=== PATIENT | female | born 1940 | race American Indian/Alaskan Native ===

== ENCOUNTER 2017-01-05 19:25 | Emergency (ER) | payer MEDICARE ==
--- NOTE | 2017-01-05 20:41 | Emergency Department Report ---
HPI - General Chief Complaint: Syncope Time Seen by Provider: 01/05/17 20:11 - HPI HPI: This is a 76-year-old Afro[place]er female who presents to the emergency department by EMS from [facility] with complaint of dizziness/lightheadedness and a possible syncopal episode. The patient came to the [facility] saying that she was feeling dizzy and they told her to sit down. At that point she may have passed out and says the last thing she actually remembers is coming to the hospital with EMS. She denies any chest pain, shortness of breath, headache , vision change, palpitations. She has a history of insulin dependent diabetes , hypertension. Her primary care doctor is at [facility] and his Dr. Abiodun Zayas. She denies any history of ME, CVA, PE/DVT. She did not take anything and was not given anything for symptoms prior to presentation. No recent travel. ED Past Medical Hx - Past Medical History Previous Medical History?: Yes Hx Hypertension: Yes Hx Diabetes: Yes Hx Psychiatric Treatment: Yes (depression) - Surgical History Past Surgical History?: No - Social History Smoking Status: Never Smoker Substance Use Type: None - Medications Home Medications: Home Medications Medication Instructions Recorded Confirmed Last Taken Type Acetaminophen [Mapap] 325 mg PO Q6H PRN 03/03/16 03/03/16 Unknown History Amlodipine Besylate [Norvasc] 10 mg PO DAILY 03/03/16 03/03/16 Unknown History Aspirin [Aspirin BABY CHEW TAB] 81 mg PO QDAY 03/03/16 03/03/16 Unknown History Atorvastatin [Lipitor Tab] 40 mg PO QHS 03/03/16 03/03/16 Unknown History Buspirone HCl [busPIRone] 5 mg PO TID 03/03/16 03/03/16 Unknown History Donepezil HCl 10 mg PO QDAY 03/03/16 03/03/16 Unknown History Furosemide [Lasix] 20 mg PO QDAY 03/03/16 03/03/16 Unknown History Ibuprofen [Motrin] 800 mg PO Q8HR PRN 03/03/16 03/03/16 Unknown History Insulin NPH/Regular [Novolin 70/30] See Protocol SQ ACHS 03/03/16 03/03/16 Unknown History Losartan [Cozaar] 50 mg PO QDAY 03/03/16 03/03/16 Unknown History Memantine HCl [Namenda] 5 mg PO BID 03/03/16 03/03/16 Unknown History oxyCODONE /ACETAMINOPHEN [Percocet 1 tab PO Q4HR 03/03/16 03/03/16 Unknown History ] ED Review of Systems ROS: Stated complaint: DIZZINESS Other details as noted in HPI Comment: All other systems reviewed and negative Constitutional: denies: chills, fever Eyes: denies: eye pain, eye discharge, vision change ENT: denies: ear pain, throat pain Respiratory: denies: cough, shortness of breath, wheezing Cardiovascular: syncope. denies: chest pain, palpitations Gastrointestinal: denies: abdominal pain, nausea, diarrhea Genitourinary: denies: urgency, dysuria, discharge Musculoskeletal: denies: back pain, joint swelling, arthralgia Skin: denies: rash, lesions Neurological: other (dizziness/lightheadedness). denies: headache Physical Exam - Physical Exam Vital Signs: Vital Signs 01/05/17 01/05/17 19:56 20:14 Temperature 98.8 F Pulse Rate 53 L Respiratory 18 18 Rate Blood Pressure 115/53 O2 Sat by Pulse 99 99 Oximetry Physical Exam: GENERAL: The patient is well-developed well-nourished. HEENT: Normocephalic. Atraumatic. Extraocular motions are intact. Patient has moist mucous membranes. Pupils equal reactive to light bilaterally. No nystagmus. NECK: Supple. Trachea is midline. CHEST/LUNGS: Clear to auscultation. There is no respiratory distress noted. HEART/CARDIOVASCULAR: Regular. There is no tachycardia. There is no gallop rub or murmur. ABDOMEN: Abdomen is soft, nontender. Patient has normal bowel sounds. There is no abdominal distention. SKIN: Skin is warm and dry. NEURO: The patient is awake, alert, and oriented. The patient is cooperative. The patient has no focal neurologic deficits. The patient has normal speech. Cranial nerves II through XII grossly intact. No pronator drift. No dysmetria. MUSCULOSKELETAL: There is no tenderness or deformity. There is no limitation range of motion. There is no evidence of acute injury. Muscle strength 5 out of 5 for upper and lower extremity bilaterally. ED Course Vital Signs 01/05/17 01/05/17 19:56 20:14 Temperature 98.8 F Pulse Rate 53 L Respiratory 18 18 Rate Blood Pressure 115/53 O2 Sat by Pulse 99 99 Oximetry ED Medical Decision Making - Lab Data Result diagrams: 01/05/17 20:45 01/05/17 20:45 - EKG Data -: EKG Interpreted by Me EKG shows normal: sinus rhythm (with PACs), axis, intervals, QRS complexes, ST- T waves (nonspecific ST-T waves) Rate: bradycardia (58 bpm) - EKG Data When compared to previous EKG there are: previous EKG unavailable Interpretation: other (sinus rhythm with PACs, mild bradycardia at 58 bpm, nonspecific ST-T waves) - Radiology Data Radiology results: report reviewed, image reviewed interpreted by me: Chest x-ray did not show any acute process. Heart is normal shape and size. No effusions. No pneumothorax. No signs of pneumonia seen. CT of the head without contrast shows some low density in the periventricular white matter to the right ventricular atria that is of indeterminate age but likely represents small vessel ischemic changes. Mild cerebral atrophy. Chronic sinusitis of the right sphenoid and posterior left ethmoid sinuses. - Medical Decision Making 76-year-old female presents the emergency department after she got acutely dizzy and had a syncopal episode. Since patient has been in the emergency department she has been awake, alert, oriented and in no acute distress. There are no focal, motor or sensory deficits in her cranial nerves are intact. No slurred speech, dysmetria or pronator drift. Heart and lung sounds are normal auscultation. Patient was seen ambulatory in the emergency department, even without her cane, and has been stable while doing so. There was a CT of the head without contrast did not show any bleed, shift, mass or any acute process. Chest x-ray does not show any pneumonia, pneumothorax, pleural effusions or any acute process. The labs are mostly unremarkable. While there is a leukocytosis of 17,000, and this could be reactive. No signs of infection were seen on physical exam, x-ray or urinalysis. Patient also has a slightly elevated lactic acid level but I do not feel it to be significant. Patient has not had any chest pain, back pain, shortness of breath. EKG did not show any signs of ST elevation ME or dysrhythmia. Vital signs are stable throughout her ED course including being afebrile. Since this is the first syncopal episode for this patient and she no longer has any feelings of dizziness or weakness, nor any other neurological deficits, feel that the patient is safe for discharge home at this time. She will go back [place] but has been encouraged to follow up with Dr. Abiodun Zayas. She has also been encouraged to return to the emergency department immediately with any return of her dizziness, or any further syncopal episodes, chest pain, shortness of breath or any acute distress. - Differential Diagnosis vasovagal, orthostatic hypotension, CVA, TIA, ME Critical Care Time: No Critical care attestation.: If time is entered above; I have spent that time in minutes in the direct care of this critically ill patient, excluding procedure time. ED Disposition Clinical Impression: Dizziness Syncope Qualifiers: Syncope type: unspecified Qualified Code(s): R55 - Syncope and collapse Disposition: DISCHARGED TO HOME OR SELFCARE Is pt being admited?: No Condition: Stable Instructions: Syncope (ED), Dizziness (ED), Lightheadedness (ED) Additional Instructions: Please follow-up with your primary care doctor in the next few days. Return to the emergency department with any return of your dizziness, lightheadedness, any weakness, further episodes of passing out, chest pain or shortness of breath , or any acute distress. Referrals: HAIM ZAYAS [Primary Care Provider] - 3-5 Days ABIODUN ZAYAS MD [Staff Physician] - 3-5 Days Time of Disposition: 23:41
[2017-01-05 21:14] LABS: Basophils % (Auto) 0.3 % (0.0-1.8); Eosinophils % (Auto) 0.4 % (0.0-4.3); Hematocrit 39.5 % (30.3-42.9); Hemoglobin 12.9 gm/dl (10.1-14.3); Mean Corpuscular HGB Conc 33 % (30-34); Mean Corpuscular Hemoglobin 28 pg (28-32); Mean Corpuscular Volume 87 fl (79-97); Platelet Count 190 K/mm3 (140-440); Red Blood Count 4.55 M/mm3 (3.65-5.03); Red Cell Distribution Width 15.2 % (13.2-15.2)
[2017-01-05 21:31] LABS: Creatine Kinase MB 1.5 ng/mL (0.0-4.0)
[2017-01-05 21:34] LABS: Alanine Aminotransferase 13 units/L (7-56); Albumin 4.1 g/dL (3.9-5); Albumin/Globulin Ratio 1.2 %; Alkaline Phosphatase 102 units/L (35-129); Anion Gap 17 mmol/L; BUN/Creatinine Ratio 13.33; Bilirubin,Total 0.2 mg/dL (0.1-1.2); Blood Urea Nitrogen 16 mg/dL (7-17); Calcium 9.6 mg/dL (8.4-10.2); Carbon Dioxide 26 mmol/L (22-30); Chloride 102.1 mmol/L (98-107); Creatine Kinase 107 units/L (30-135); Glucose 164 mg/dL (65-100); Potassium 4.3 mmol/L (3.6-5.0); Sodium 141 mmol/L (137-145); Total Protein 7.5 g/dL (6.3-8.2)
--- NOTE | 2017-01-05 22:06 | Admit Criteria Form ---
Admission Criteria Documentation: TELEMETRY CARE Telemetry Admission Guidelines (Place 'X' for any and all applicable criteria): Admission to telemetry [A] may be indicated for ANY ONE of the following(1)(2)(3 )(4)(5): [X ]I. Cardiac disease, including ANY ONE of the following (9)(10)(11)(12)( 13): [ ]a) Postacute PA [ ]b) Low-risk patients with ST-segment elevation PA who have undergone successful percutaneous coronary intervention [ ]c) Unstable angina [ ]d) Suspected PA (until it is ruled out) [ ]e) Post cardiac surgery (first 48 to 72 hours unless complications occur) [X ]f) Acute arrhythmias (including significant tachycardia or bradycardia) [B] [ ]g) Firing of an implantable cardioverter defibrillator [C] [ ]h) Suspected pacemaker or implantable cardioverter defibrillator malfunction (10) [ ]i) New administration or adjustment of an antiarrhythmic drug [D ] [ ]j) Child admitted for acute congestive heart failure [ ]j) Long QT syndrome [ ]k) Advanced heart block (eg, second-degree Mobitz type II, third- degree heart block) [ ]l) Acute myocarditis or pericarditis [ ]m) Short-term (ambulatory or inpatient) monitoring after a cardiac procedure as indicated by ANY ONE of the following [E]: [ ]i) Electrophysiologic studies [ ]ii) Percutaneous coronary intervention with stent placement [ ]iii) Pacemaker placement with cardiac conduction defect [ ]iv) Implantable cardiac defibrillator placement [ ]II. Drug overdose or poisoning with substance that causes arrhythmias or QT prolongation (eg, phenothiazines, sympathomimetic agents, cyclic antidepressants, digitalis, antiarrhythmic drugs)(15) [ ]III. Short-term (ambulatory or inpatient) monitoring after therapeutic or diagnostic procedure requiring conscious sedation or anesthesia (eg, endoscopy, elective cardioversion) [ ]IV. Acute cerebrovascular even[F](18) [ ]V. Massive blood transfusion (eg, at least 10 units of packed red blood cells in 24 hours) [ ]. Variceal bleeding after endoscopy, sclerotherapy, or IV vasopressin [ ]VII. Uncorrected electrolyte abnormalities associated with an increased risk of dangerous arrhythmia [G]; examples include [ ]a) Hyperkalemia with attributable ECG changes [ ]b) Potassium greater than 6.5 mmol/L (mEq/L) in a patient without history of chronic renal disease [ ]c) Prolonged QT attributed to hypokalemia, hypomagnesemia, or hypocalcemia [ ]VIII.Unexplained syncope or other neurologic event suspected of being due to arrhythmia due to a finding that increases risk; examples include(19)(20)(21): [ ]a) High-risk ECG findings (eg, bifascicular block, bradycardia, abnormal QT interval, ventricular pre- excitation) [ ]b) History of previous syncope due to arrhythmia [ ]c) Abnormal ventricular function (eg, reduced ejection fraction ) [ ]d) Exertional or supine syncope [ ]e) Concerning syncope characteristics (eg, sudden loss of consciousness without prodrome) [ ]f) Family history of sudden [ ]g) Use of arrhythmogenic medication [ ]h) Suspected cardiac ischemia [ ]i) Known channelopathy (eg, long QT syndrome, Brugada syndrome, or catecholaminergic paroxysmal ventricular tachycardia) [ ]j) Known structural heart disease (eg, hypertrophic cardiomyopathy , severe valvular disease) [ ]k) Palpitations preceding syncope The original [employer] content created by [employer] has been revised. The portions of the content which have been revised are identified through the use of italic text or in bold, and [employer] has neither reviewed nor approved the modified material. All other unmodified content is copyright [employer]. Please see references footnoted in the original [employer] edition 2016
--- NOTE | 2017-01-05 22:10 | Cat Scan Report ---
FINAL REPORT EXAM: CT HEAD/BRAIN WO CON HISTORY: Syncope TECHNIQUE: Standard unenhanced CT of the head at 5.0 millimeter axial increments. PRIORS: None. FINDINGS: The ventricular system is normal in size and configuration. There is mild cerebral atrophy. There is low-density in the periventricular white matter of the centrum semiovale over the atria of the right lateral ventricle. This probably represents small vessel ischemic changes but is of indeterminate age. This could be recent. There is no evidence for mass lesion, mass effect, midline shift, or acute intracranial hemorrhage. No evidence for acute skull fracture is seen. No abnormality in the overlying scalp soft tissues is seen. Visualized paranasal sinuses demonstrate opacification of the right sphenoid sinus and posterior left ethmoid sinus. IMPRESSION: 1. Low-density in the periventricular white matter cranial to the right ventricular atria. This is of indeterminate age but likely represents small vessel ischemic changes which could be recent. 2. Mild cerebral atrophy 3. Chronic sinusitis of the right sphenoid and posterior left ethmoid sinuses
[2017-01-05 22:50] LABS: Urine Drugs of Abuse Note Disclamer
[2017-01-05 22:59] LABS: Bilirubin,Urine NEG (Negative); Blood,Urine SM (Negative); Ketones,Urine NEG (Negative); Leukocyte Esterase,Urine NEG (Negative); Mucus,Urine FEW /HPF; Nitrite,Urine NEG (Negative); Protein,Urine <15 mg/dL mg/dL (Negative); WBC,Urine < 1.0 /HPF (0.0-6.0)
[2017-01-05 23:38] VITALS: BP 149/53
--- NOTE | 2017-01-06 08:45 | XRay Report ---
CHEST ONE VIEW INDICATION: Syncope. COMPARISON: None similar at this institution. FINDINGS: Portable, single, frontal chest radiograph demonstrates normal cardiomediastinal silhouette. Mild bilateral horizontal atelectasis or scarring inferiorly. Slight biapical scarring or pleural thickening. Intact bones. Extrinsic EKG leads. CONCLUSION: No significant acute chest process, as described. Thank you for the opportunity to participate in this patient's care.
== END 2017-01-05 23:57 | disposition home or self-care (01) ==
LOC: ED 19:25
DX: R42 Dizziness and giddiness (principal); R55 Syncope and collapse; I10 Essential (primary) hypertension; E11.9 Type 2 diabetes mellitus without complications; F32.9 Major depressive disorder, single episode, unspecified; Z79.82 Long term (current) use of aspirin; Z79.4 Long term (current) use of insulin
CPT/HCPCS: 36415; 51701; 70450; 71010; 80053; 80307; 81001; 82140; 82550; 82553; 84443; 84484; 85025; 93005; 93010